=== PATIENT | female | born 2000 | race Asian ===

== ENCOUNTER 2019-06-10 19:56 | Emergency (ER) | payer OTHER ==
[2019-06-10] MEDS ORDERED: Pseudoephedrine HCL ER TAB* 120 MG PO ONE (20:27)
--- NOTE | 2019-06-10 20:27 | ED ---
Influenza-Like Illness - HPI Summary HPI Summary: 19 year old female presents with cough for the past week. She states that she has had sinus congestion for the past 2 days ago. States that her nose has been running. Denies any sinus pressure. No headache. No dental pain. She admits occasional sore throat. Cough is a dry cough. The cough has been improving. She has no medical conditions. She doesn't smoke. No abdominal pain. No nausea or vomiting. No chest pain. Has been taking DayQuil and NyQuil. Denies any fevers. - History of Current Complaint Chief Complaint: EDUpperRespComplaint Time Seen by Provider: 06/10/19 20:13 - Allergy/Home Medications Allergies/Adverse Reactions: Allergies Allergy/AdvReac Type Severity Reaction Status Date / Time No Known Allergies Allergy Verified 06/10/19 20:02 PMH/Surg Hx/FS Hx/Imm Hx Endocrine/Hematology History: Denies: Hx Anticoagulant Therapy Respiratory History: Denies: Hx Asthma Infectious Disease History: No Infectious Disease History: Denies: Traveled Outside the [place] in Last 30 Days - Family History Known Family History: Positive: Non-Contributory - Social History Substance Use Type: Reports: None Smoking Status (MU): Never Smoked Tobacco Review of Systems Negative: Fever Positive: Sore Throat, Nasal Discharge Negative: Chest Pain Positive: Cough. Negative: Shortness Of Breath All Other Systems Reviewed And Are Negative: Yes Physical Exam Triage Information Reviewed: Yes Vital Signs On Initial Exam: Initial Vitals Temp Pulse Resp BP Pulse Ox 98.3 F 95 18 135/97 98 06/10/19 19:59 06/10/19 19:59 06/10/19 19:59 06/10/19 19:59 06/10/19 19:59 Vital Signs Reviewed: Yes Appearance: Positive: Well-Appearing Skin: Positive: Warm, Dry Head/Face: Positive: Normal Head/Face Inspection Eyes: Positive: Normal, EOMI, TRU, Conjunctiva Clear ENT: Positive: Pharynx normal, Nasal drainage, TMs normal. Negative: Sinus tenderness Neck: Positive: Supple, Nontender, No Lymphadenopathy Respiratory/Lung Sounds: Positive: Clear to Auscultation, Breath Sounds Present Cardiovascular: Positive: Normal, RRR Abdomen Description: Positive: Nontender, Soft Bowel Sounds: Positive: Present Musculoskeletal: Positive: Normal Neurological: Positive: Normal Psychiatric: Positive: Normal Procedures - Sedation Patient Received Moderate/Deep Sedation with Procedure: No Diagnostics - Vital Signs Vital Signs Temp Pulse Resp BP Pulse Ox 06/10/19 19:59 98.3 F 95 18 135/97 98 - Laboratory Lab Statement: Any lab studies that have been ordered have been reviewed, and results considered in the medical decision making process. Flu Symptom Course/Dx - Course Course Of Treatment: 19 year old female presents with cough for the past week. She states that she has had sinus congestion for the past 2 days ago. States that her nose has been running. Denies any sinus pressure. No headache. No dental pain. She admits occasional sore throat. Cough is a dry cough. The cough has been improving. She has no medical conditions. She doesn't smoke. No abdominal pain. No nausea or vomiting. No chest pain. Has been taking DayQuil and NyQuil. Denies any fevers. On exam sinus congestion noted. No sinus tenderness. Pharynx normal. Lungs CTA. Will treat supportively with Flonase and Sudafed. Likely viral at this point. Told follow up with [facility] if no improvement. Patient understands agrees with plan. - Diagnoses Differential Diagnosis/HQI/PQRI: Positive: Influenza, Pneumonia, Upper Respiratory Infection, Other - sinusitis Provider Diagnoses: Upper respiratory infection Discharge ED - Sign-Out/Discharge Documenting (check all that apply): Patient Departure - Discharge Plan Condition: Good Disposition: HOME Prescriptions: Fluticasone NASAL SPRAY 50MCG* [Flonase NASAL SPRAY 50MCG*] 2 spray BOTH NARES DAILY #1 btl Pseudoephedrine HCL ER TAB* [Sudafed 12 Hour*] 120 mg PO BID #20 tab.er Patient Education Materials: Upper Respiratory Infection (ED) Referrals: No Primary Care Phys,NOPCP [Primary Care Provider] - Additional Instructions: Use saline spray in nose as much as needed Use intranasal steroid two spray each nostril daily take sudafed every 12 hours Take Tylenol or ibuprofen for pain every 6 hours Follow up with [facility] in 5 days if no improvement Return to ED if develop any new or worsening symptoms - Billing Disposition and Condition Condition: GOOD Disposition: Home
[2019-06-10 20:45] VITALS: BP 124/100
== END 2019-06-10 20:44 | disposition home or self-care (01) ==
LOC: ED 19:56
DX: J06.9 Acute upper respiratory infection, unspecified (principal)
CPT/HCPCS: 99282; A9270-GY